=== PATIENT | male | born 1955 | race Caucasian/White ===

== ENCOUNTER → 2022-08-27 | Day surgery (SDC) | payer MEDICARE, MEDICAID ==
[2022-08-24 12:40] LABS: Basophils # (auto) 0.1 10 ^3/uL (0-0.2); Basophils % (auto) 0.7 % (0.0-2.0); Eosinophils # (auto) 0.3 10 ^3/uL (0-0.8); Eosinophils % (auto) 2.9 % (0.0-7.0); Hematocrit 34.7 % (41.0-53.0); Hemoglobin 10.9 g/dL (13.5-17.5); Lymphocytes # (auto) 1.3 10 ^3/uL (0.4-5.4); Mean Corpuscular Hemoglobin 27.5 pg (28.0-32.0); Mean Corpuscular Hgb Conc. 31.5 g/dL (32.0-36.0); Mean Corpuscular Volume 87.3 fL (80.0-100.0); Monocytes # (auto) 0.9 10 ^3/uL (0-1.3); Neutrophils # (auto) 6.5 10 ^3/uL (1.6-8.6); Neutrophils % (auto) 72.4 % (37.0-80.0); Red Blood Cells 3.97 10^6/uL (4.5-5.90); Red Cell Distribution Width 17.3 % (11.8-14.3)
[2022-08-24 12:51] LABS: Urine Bacteria NONE SEEN /hpf (None Seen); Urine Blood Negative /uL (Negative); Urine Hyaline Cast FEW /lpf (0 - 2); Urine Specific Gravity 1.011 (1.001-1.035); Urine WBC 3 /hpf (0 - 3)
[2022-08-24 12:55] LABS: INR 1.17 (0.9-1.15)
[2022-08-24 13:12] LABS: Albumin 2.8 g/dL (3.4-5.0); Anion Gap 6 (5-15); Aspartate Aminotransferase 86 U/L (15-37); BUN/Creatinine Ratio 8.2; Blood Urea Nitrogen 8 mg/dL (7-18); Calcium 8.4 mg/dL (8.5-10.1); Carbon Dioxide 22 mmol/L (21-32); Chloride 110 mmol/L (98-107); GFR African American 100 mL/min; GFR Non-African American 82 mL/min; Glucose 97 mg/dL (74-106); Sodium 138 mmol/L (136-145)
[2022-08-24 13:16] LABS: Alanine Aminotransferase 66 U/L (16-61); Alkaline Phosphatase 123 U/L (45-117); Bilirubin, Total 0.9 mg/dL (0.2-1.0); Total Protein 6.8 g/dL (6.4-8.2)
[~2022-08-27] VITALS: Ht 177.8 cm; Wt 83.5 kg
[~2022-08-27] MED LIST: ALB5IS NEB; BENZ100C97 PO; CHOL20007 OR; FLUT1AER17 IN; HYDROmorphone HCL 2 MG/ML VL/or syr IV PRN; IPR002IS HHN; METOCLOPRAMIDE HCL 5MG/ml INJ 2ml VIAL IV PRN; METR500T14 PO; MIDAZOLAM HCL 2MG/2ML 2ml VIAL (1mg/ml) ONE; MORPHINE SULFATE INJ 2 MG/ml SYRG IV PRN; NYS5LQ MT; ONDANSETRON HCL 4 MG/2 ML VIAL ONE; PANT40TA2 PO; PROPOFOL 10 MG/ML 20 ML IV ONE; SODIUM CHLORIDE LOCK 10 ML ONE; TRAM50TA2 PO; fentaNYL CITRATE 100 MCG/2 ML VL ONE
[2022-08-27 11:51] VITALS: BP 106/67
== END | disposition home or self-care (01) ==
LOC: GI 08:26
PROVIDERS: ATTEND Internal Medicine Gastroenterology
DX: K74.60 Unspecified cirrhosis of liver (principal); I85.10 Secondary esophageal varices without bleeding; K29.50 Unspecified chronic gastritis without bleeding; K76.6 Portal hypertension; K31.89 Other diseases of stomach and duodenum; Z20.822 Contact with and (suspected) exposure to COVID-19
CPT/HCPCS: 36415; 43239; 80053; 81001; 85025; 85610; 85730; J2250; J2405; J2704; J3010; J7030; U0003

== ENCOUNTER → 2023-07-01 | Day surgery (SDC) | payer MEDICARE, MEDICAID ==
[2023-06-28 13:21] LABS: Basophils # (auto) 0 10 ^3/uL (0-0.2); Basophils % (auto) 0.4 % (0.0-2.0); Eosinophils # (auto) 1.1 10 ^3/uL (0-0.8); Eosinophils % (auto) 10.4 % (0.0-7.0); Hematocrit 33.9 % (41.0-53.0); Lymphocytes # (auto) 2.2 10 ^3/uL (0.4-5.4); Lymphocytes % (auto) 21.8 % (10.0-50.0); Mean Corpuscular Hemoglobin 27.9 pg (28.0-32.0); Mean Corpuscular Hgb Conc. 32.4 g/dL (32.0-36.0); Mean Corpuscular Volume 86.1 fL (80.0-100.0); Monocytes # (auto) 1.1 10 ^3/uL (0-1.3); Monocytes % (auto) 11.1 % (0.0-12.0); Neutrophils # (auto) 5.8 10 ^3/uL (1.6-8.6); Neutrophils % (auto) 56.3 % (37.0-80.0); Nucleated Red Blood Cells % 0.1 %; Red Blood Cells 3.94 10^6/uL (4.5-5.90); Red Cell Distribution Width 19.5 % (11.8-14.3); White Blood Cell 10.2 10^3/uL (4.4-10.8)
[2023-06-28 13:28] LABS: INR 1.08 (0.9-1.15); Partial Thromboplastin Time 30.6 SEC (24.5-34.5); Prothrombin Time 11.3 sec (9.3-11.8)
[2023-06-28 13:39] LABS: Urine Bacteria NONE SEEN /hpf (None Seen); Urine Blood Negative /uL (Negative); Urine Clarity Clear (Clear); Urine Color Yellow (Yellow); Urine Hyaline Cast FEW /lpf (0 - 2); Urine Protein, UAD Negative (Negative); Urine Specific Gravity 1.017 (1.001-1.035); Urine Urobilinogen Normal (Negative); Urine WBC 1 /hpf (0 - 3); Urine pH 5.5 (5.0-8.0)
[2023-06-28 15:01] LABS: Alanine Aminotransferase 10 U/L (7-40); Albumin 3.8 g/dL (3.2-4.8); Alkaline Phosphatase 69 U/L (46-116); Anion Gap 9 (5-15); Aspartate Aminotransferase 25 U/L (13-40); BUN/Creatinine Ratio 10.5 (10.0-20.0); Blood Urea Nitrogen 14 mg/dL (9-23); Carbon Dioxide 23 mmol/L (20-30); Chloride 106 mmol/L (98-107); Glucose 93 mg/dL (74-106); Sodium 138 mmol/L (136-145)
[2023-06-28 15:02] LABS: Bilirubin, Total 0.5 mg/dL (0.2-1.0); Total Protein 6.1 g/dL (5.7-8.2)
[~2023-07-01] VITALS: Ht 177.8 cm; Wt 78.5 kg
[~2023-07-01] MED LIST changes: -CHOL20007 OR; +DILT120T8 PO; +ERGO50003 PO; -FLUT1AER17 IN; +FURO1TAB33 PO; +IPRAAER6 IN; +METO25TA36 PO; -METR500T14 PO; +SCOP1DIS9 TD; +SPIR25TA PO; -TRAM50TA2 PO
[2023-07-01 13:37] VITALS: PULSE 92; RESP 10; TEMP 96.8; O2SAT 100
[2023-07-01 14:15] VITALS: BP 114/70; PULSE 95; RESP 20; O2SAT 95
== END | disposition home or self-care (01) ==
LOC: GI 10:26
PROVIDERS: ATTEND Internal Medicine Gastroenterology
DX: R19.5 Other fecal abnormalities (principal); K57.30 Diverticulosis of large intestine without perforation or abscess without bleeding; B18.2 Chronic viral hepatitis C; K22.70 Barrett's esophagus without dysplasia; K29.70 Gastritis, unspecified, without bleeding; J44.9 Chronic obstructive pulmonary disease, unspecified; I50.9 Heart failure, unspecified; I48.91 Unspecified atrial fibrillation
CPT/HCPCS: 36415; 45378; 80053; 81001; 85025; 85610; 85730; J2250; J2405; J2704; J3010; J7030